=== PATIENT | female | born 1985 | race Caucasian/White ===

== ENCOUNTER 2020-01-15 16:24 | Day surgery (SDC) | payer OTHER ==
--- NOTE | 2020-01-15 16:57 | EDM.PDOC ---
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 She is not sure how far along she is. She was seen in [place] yesterday and the beta-hCG was 5330 some. She has been spotting per vagina for the last 2 days with mild lower abdominal cramping pain. She had bright red blood per vagina since waking this morning especially with wiping after voiding. About 2 and half hours ago she started to flow extremely heavily per vagina of bright red blood soaking all her clothing and passing large clots. She not sure if she seen any tissue in the blood that was passed. Associated moderate lower abdominal cramping pain. No nausea or vomiting no fever chills. She knows her blood type is O+. Her last meal was at noon today. She has had a couple of small snack cookies since that time. Onset: Today, Sudden Onset Date: 01/15/20 Onset Time: 14:45 Duration: Hour(s):, Constant Location: Reports: Other (Heavy bleeding per vaginaheavy bleeding per vagina) Quality: Reports: Other Severity: Severe Improves with: Reports: None Worsens with: Reports: None Context: Reports: Other (Spontaneous onset of heavy bleeding per vagina approximate 2 and half hours ago.). 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: 4 (All deliveries reached term and were delivered vaginally.) LMP (Approximate): Unknown (Believes about 2 months ) Social & Family History - Living Situation & Occupation Living situation: Reports: ED ROS GENERAL - Review of Systems Review Of Systems: See Below Constitutional: Denies: Fever, Chills, Malaise, Weakness, Fatigue, Decreased Appetite, Weight Loss HEENT: Reports: No Symptoms Respiratory: Reports: No Symptoms Cardiovascular: Reports: No Symptoms Endocrine: Reports: No Symptoms GI/Abdominal: Reports: Abdominal Pain (Use lower abdominal cramping pain), Other (Heavy vaginal flow per vagina for over 2 and half hours.). Denies: Decreased Appetite, Hematemesis, Hematochezia : Reports: Frequency Musculoskeletal: Reports: Back Pain (Diffuse low back pain) Skin: Reports: No Symptoms Neurological: Reports: No Symptoms Psychiatric: Reports: No Symptoms Hematologic/Lymphatic: Reports: No Symptoms Immunologic: Reports: No Symptoms ED EXAM - Physical Exam Exam: See Below Exam Limited By: No Limitations General Appearance: Alert, WD/WN, Anxious, Mild Distress, Other (Temperature is 37.2. Heart rate 83 and sinus respiratory 16 BP 04/03/1970 O2 sats 100% room air.) Eye Exam: Bilateral Eye: Normal Inspection (No blepharal pallor or scleral icterus.), PERRL Throat/Mouth: Normal Inspection, Normal Lips, Normal Oropharynx Head: Atraumatic, Normocephalic Neck: Normal Inspection, Supple, Non-Tender, Full Range of Motion. No: Lymphadenopathy (L), Lymphadenopathy (R) Respiratory/Chest: No Respiratory Distress, Lungs Clear, Normal Breath Sounds, No Accessory Muscle Use Cardiovascular: Normal Peripheral Pulses, Regular Rate, Rhythm, No Edema, No Gallop, No Murmur, No Rub GI/Abdominal Exam: Normal Bowel Sounds, No Distention, No Abnormal Bruit, No Mass, Pelvis Stable, Guarding, Tender (And is suprapubically.), Abnormal Bowel Sounds (Bowel sounds are few very few and far between.). No: Rigid, Rebound (Very mild guarding suprapubically) (Female) Exam: Vaginal Bleeding, Other (Vaginal bleeding with bright red blood and clots. Uterus is anteverted and approximately 8 to 10 weeks in size. Cervical os is open.). No: Products of Conception Heart Tones: Not Eagle Back Exam: Normal Inspection, Full Range of Motion, Paraspinal Tenderness. No: CVA Tenderness (L), CVA Tenderness (R) Extremities: Normal Range of Motion, Non-Tender, No Pedal Edema Neurological: Alert, Oriented, CN II-XII Intact, Normal Cognition Psychiatric: Anxious Skin Exam: Warm, Dry, Intact, Normal Color, No Rash Course - Vital Signs Last Recorded V/S: Last Vital Signs Temp 37.9 C 01/15/20 18:57 Pulse 83 01/15/20 16:48 Resp 16 01/15/20 16:48 BP 117/79 01/15/20 18:57 Pulse Ox 100 01/15/20 16:48 - Orders/Labs/Meds Orders: Active Orders 24 hr Category Date Time Status Patient Status [ADT] Routine ADT 01/15/20 18:44 Active OB Transvaginal [US] Stat Exams 01/15/20 16:53 Ordered PATIENT RETYPE [BBK] Routine Lab 01/15/20 18:28 Ordered Lactated Ringers [Ringers, Lactated] 1,000 ml Med 01/15/20 17:00 Active IV ASDIRECTED Remove Patch Med 01/18/20 19:15 Active 1 ea TRDERM Q72H Scopolamine [Transderm-Scop] Med 01/15/20 18:59 Active 1.5 mg TRDERM ONETIME PRN Schedule Procedure [COMM] Stat Oth 01/15/20 18:47 Ordered Medication Orders Lactated Ringer's (Ringers, Lactated) 1,000 mls @ 999 mls/hr IV ASDIRECTED [facility] Last Admin: 01/15/20 17:00 Dose: 999 mls/hr Documented by: MAURO Miscellaneous Information (Remove Patch) 1 ea TRDERM Q72H [facility] Scopolamine (Transderm-Scop) 1.5 mg TRDERM ONETIME PRN PRN Reason: PONV Labs: Laboratory Tests 01/15/20 01/15/20 01/15/20 Range/Units 16:35 16:35 16:35 WBC 9.87 (3.98-10.04) K/mm3 RBC 4.93 (3.98-5.22) M/mm3 Hgb 14.8 (11.2-15.7) gm/dl Hct 45.2 H (34.1-44.9) % MCV 91.7 (79.4-94.8) fl MCH 30.0 (25.6-32.2) pg MCHC 32.7 (32.2-35.5) g/dl RDW Std Deviation 42.0 (36.4-46.3) fL Plt Count 357 (182-369) K/mm3 MPV 10.3 (9.4-12.3) fl Neut % (Auto) 59.2 (34.0-71.1) % Lymph % (Auto) 33.3 (19.3-51.7) % Cuming % (Auto) 6.0 (4.7-12.5) % Eos % (Auto) 1.1 (0.7-5.8) Baso % (Auto) 0.3 (0.1-1.2) % Neut # (Auto) 5.84 (1.56-6.13) K/mm3 Lymph # (Auto) 3.29 (1.18-3.74) K/mm3 Cuming # (Auto) 0.59 H (0.24-0.36) K/mm3 Eos # (Auto) 0.11 (0.04-0.36) K/mm3 Baso # (Auto) 0.03 (0.01-0.08) K/mm3 PT 9.9 (9.7-12.0) SECONDS INR < 0.93 APTT 29.1 (21.7-31.4) SECONDS Sodium 141 (136-145) mEq/L Potassium 3.6 (3.5-5.1) mEq/L Chloride 102 (98-107) mEq/L Carbon Dioxide 27 (21-32) mEq/L Anion Gap 15.6 H (5-15) BUN 11 (7-18) mg/dL Creatinine 0.8 (0.55-1.02) mg/dL Est Cr Clr Drug Dosing TNP Estimated GFR (MDRD) > 60 (>60) mL/min BUN/Creatinine Ratio 13.8 L (14-18) Glucose 109 H (74-106) mg/dL Calcium 9.6 (8.5-10.1) mg/dL Total Bilirubin 0.3 (0.2-1.0) mg/dL AST 13 L (15-37) U/L ALT 20 (14-59) U/L Alkaline Phosphatase 90 (46-116) U/L Total Protein 8.0 (6.4-8.2) g/dl Albumin 4.4 (3.4-5.0) g/dl Globulin 3.6 gm/dL Albumin/Globulin Ratio 1.2 (1-2) HCG, Quant 3488.0 mIU/mL SARS-CoV-2 RNA (JUAREZ) (NEGATIVE) Blood Type Gel Antibody Screen 01/15/20 01/15/20 Range/Units 16:35 17:45 WBC (3.98-10.04) K/mm3 RBC (3.98-5.22) M/mm3 Hgb (11.2-15.7) gm/dl Hct (34.1-44.9) % MCV (79.4-94.8) fl MCH (25.6-32.2) pg MCHC (32.2-35.5) g/dl RDW Std Deviation (36.4-46.3) fL Plt Count (182-369) K/mm3 MPV (9.4-12.3) fl Neut % (Auto) (34.0-71.1) % Lymph % (Auto) (19.3-51.7) % Cuming % (Auto) (4.7-12.5) % Eos % (Auto) (0.7-5.8) Baso % (Auto) (0.1-1.2) % Neut # (Auto) (1.56-6.13) K/mm3 Lymph # (Auto) (1.18-3.74) K/mm3 Cuming # (Auto) (0.24-0.36) K/mm3 Eos # (Auto) (0.04-0.36) K/mm3 Baso # (Auto) (0.01-0.08) K/mm3 PT (9.7-12.0) SECONDS INR APTT (21.7-31.4) SECONDS Sodium (136-145) mEq/L Potassium (3.5-5.1) mEq/L Chloride (98-107) mEq/L Carbon Dioxide (21-32) mEq/L Anion Gap (5-15) BUN (7-18) mg/dL Creatinine (0.55-1.02) mg/dL Est Cr Clr Drug Dosing Estimated GFR (MDRD) (>60) mL/min BUN/Creatinine Ratio (14-18) Glucose (74-106) mg/dL Calcium (8.5-10.1) mg/dL Total Bilirubin (0.2-1.0) mg/dL AST (15-37) U/L ALT (14-59) U/L Alkaline Phosphatase (46-116) U/L Total Protein (6.4-8.2) g/dl Albumin (3.4-5.0) g/dl Globulin gm/dL Albumin/Globulin Ratio (1-2) HCG, Quant mIU/mL SARS-CoV-2 RNA (JUAREZ) Negative (NEGATIVE) Blood Type O POSITIVE Gel Antibody Screen Negative Meds: Medications Generic Name Dose Route Start Last Admin Trade Name Freq PRN Reason Stop Dose Admin Lactated Ringer's 1,000 mls @ 999 mls/hr 01/15/20 17:00 01/15/20 17:00 Ringers, Lactated IV 999 mls/hr ASDIRECTED [facility] Administration Miscellaneous Information 1 ea 01/18/20 19:15 Remove Patch TRDERM Q72H [facility] Scopolamine 1.5 mg 01/15/20 18:59 Transderm-Scop TRDERM ONETIME PRN PONV Discontinued Medications Generic Name Dose Route Start Last Admin Trade Name Freq PRN Reason Stop Dose Admin Dexamethasone Confirm 01/15/20 18:27 Dexamethasone Administered 01/15/20 18:28 Dose 20 mg .ROUTE .STK-MED ONE Fentanyl Confirm 01/15/20 18:28 Sublimaze Administered 01/15/20 18:29 Dose 100 mcg .ROUTE .STK-MED ONE Hydromorphone HCl Confirm 01/15/20 18:27 Dilaudid Administered 01/15/20 18:28 Dose 0.5 mg .ROUTE .STK-MED ONE Lidocaine HCl Confirm 01/15/20 18:27 Xylocaine-Mpf 1% Administered 01/15/20 18:28 Dose 4 mls @ as directed .ROUTE .STK-MED ONE Lactated Ringer's Confirm 01/15/20 18:27 Ringers, Lactated Administered 01/15/20 18:28 Dose 1,000 mls @ as directed .ROUTE .STK-MED ONE Lactated Ringer's Confirm 01/15/20 19:26 Ringers, Lactated Administered 01/15/20 19:27 Dose 1,000 mls @ as directed .ROUTE .STK-MED ONE Ketorolac Tromethamine Confirm 01/15/20 18:27 Toradol Administered 01/15/20 18:28 Dose 30 mg .ROUTE .STK-MED ONE Midazolam HCl Confirm 01/15/20 18:28 Versed 1 Mg/Ml Administered 01/15/20 18:29 Dose 2 mg .ROUTE .STK-MED ONE Ondansetron HCl Confirm 01/15/20 18:27 Zofran Administered 01/15/20 18:28 Dose 4 mg .ROUTE .STK-MED ONE Propofol Confirm 01/15/20 18:27 Diprivan 20 Ml Administered 01/15/20 18:28 Dose 200 mg .ROUTE .STK-MED ONE - Radiology Interpretation Free Text/Narrative:: 34-year-old female who is 5 para 4 presents to the ED with very heavy bleeding per vagina. Patient is unsure how she could be. She was weaning her last child from breast-feeding over the last 2 months. It appears that she likely had an ovulatory cycle and became with this. She was seen through the [facility] yesterday and a quantitative hCG was greater than 5300. She has been spotting per vagina for the last 2 days pinkish di scharge mostly with wiping yesterday with associated mild mid lower abdominal cramping pain. Today she had bright red bleeding per vagina since awakening particular every time she wiped. 2 and half hours ago the flow increased dramatically with soaking all of her clothing on 2 occasions with bright red blood and clot. At no time did she see any tissue components. Upon arrival vital signs are stable with heart rate of 83 BP 04/05/1975 sats 100%. Exam pelvic Jay Jay reveals the uterus to be 8 to 10 weeks in size anteverted cervix appears to be patulous and open. Large amount of clots appreciated in the posterior cul-de-sac. Plan a transvaginal ultrasound will be performed. Labs were drawn including a type and screen. I will ask for gynecological obstetrical opinion from Dr. Lau who is on-call at this time - Re-Assessments/Exams Free Text/Narrative Re-Assessment/Exam: 01/15/20 18:[address] Lau's on-call fermenter champagne to see her in consultation and he has done so. Ultrasound did not reveal any evidence of a viable fetus and it appears to be filled with blood and blood clot. Uterus is anteverted and measures 8.5 x 4.9 x 5.0 cm. The myometrium is homogeneous. Endometrial stripe is poorly defined. No anterior uterine gestational sac is identified. The right ovary measures 4.2 x 1.8 x 1.7 cm and is normal in appearance. Left ovary was not visualized with any degree of certainty. There is no free fluid in the pelvis. Decision made therefore to take her to the operating room for D&C. 01/15/20 18:18 White count is normal at 9.87. Differential shows 59% neutrophils by auto differential. Hemoglobin is 14.8 with hematocrit of 45.2. Platelet counts 3 and 57,000. PT is 9.9 with an INR of less than 0.93. PTT is 29.1. Sodium 141 with a potassium of 3.6. Chloride 102 with a bicarb of 27 and a gap is 15.6. BUN 11 with a creatinine of 0.8. GFR is greater than 60. Glucose 109. Calcium 9.6 liver function normal albumin fraction is 4.4 total protein 8.0 quantitative hCG is 3488.0 a dramatic drop from what she told me it was 2 days ago at 5383. The rapid Covid screen is pending. 01/15/20 19:00: Rapid Covid screen is negative. She will be discharged to the recovery room for D&C. Departure - Departure Time of Disposition: 19:00 Disposition: DC/Tfer to [facility] Access [facility] Condition: Fair Clinical Impression: Incomplete miscarriage with blood clot - Discharge Information *PRESCRIPTION DRUG MONITORING PROGRAM REVIEWED*: Not Applicable *COPY OF PRESCRIPTION DRUG MONITORING REPORT IN PATIENT [place]: Not Applicable Sepsis Event Note (ED) - Focused Exam Vital Signs: Vital Signs Temp Pulse Resp BP Pulse Ox 01/15/20 18:57 37.9 C 117/79 01/15/20 16:48 37.2 C 83 16 128/71 100 - My Orders Last 24 Hours: My Active Orders 01/15/20 16:53 OB Transvaginal [US] Stat 01/15/20 17:00 Lactated Ringers [Ringers, Lactated] 1,000 ml IV ASDIRECTED 01/15/20 18:28 PATIENT RETYPE [BBK] Routine - Assessment/Plan Last 24 Hours: My Active Orders 01/15/20 16:53 OB Transvaginal [US] Stat 01/15/20 17:00 Lactated Ringers [Ringers, Lactated] 1,000 ml IV ASDIRECTED 01/15/20 18:28 PATIENT RETYPE [BBK] Routine
[2020-01-15] MEDS ORDERED: Lactated Ringers 1,000 ML IV SCH (17:00)
--- NOTE | 2020-01-15 18:17 | PCM.PREANE ---
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), Dizziness (with anxiety), Headache (migraines), Numbness (left hand when sleeping) Other: Reports: Anxiety - Physical Assessment NPO Status Date: 01/15/20 NPO Status Time: 13:00 Vital Signs: Last Vital Signs Temp 37.2 C 01/15/20 16:48 Pulse 83 01/15/20 16:48 Resp 16 01/15/20 16:48 BP 128/71 01/15/20 16:48 Pulse Ox 100 01/15/20 16:48 Height: 1.7 m Weight: 70.307 kg ASA Class: 2E Mental Status: Alert & Oriented x3 Airway Class: Mallampati = 2 Dentition: Reports: Normal Dentition, Caries Thyro-Mental Finger Breadths: 3 Mouth Opening Finger Breadths: 3 ROM/Head Extension: Full Lungs: Clear to Auscultation, Normal Respiratory Effort Cardiovascular: Regular Rate, Regular Rhythm, No Murmurs - Lab Values: Laboratory Last Values WBC 9.87 K/mm3 (3.98-10.04) 01/15/20 16:35 RBC 4.93 M/mm3 (3.98-5.22) 01/15/20 16:35 Hgb 14.8 gm/dl (11.2-15.7) 01/15/20 16:35 Hct 45.2 % (34.1-44.9) H 01/15/20 16:35 MCV 91.7 fl (79.4-94.8) 01/15/20 16:35 MCH 30.0 pg (25.6-32.2) 01/15/20 16:35 MCHC 32.7 g/dl (32.2-35.5) 01/15/20 16:35 RDW Std Deviation 42.0 fL (36.4-46.3) 01/15/20 16:35 Plt Count 357 K/mm3 (182-369) 01/15/20 16:35 MPV 10.3 fl (9.4-12.3) 01/15/20 16:35 Neut % (Auto) 59.2 % (34.0-71.1) 01/15/20 16:35 Lymph % (Auto) 33.3 % (19.3-51.7) 01/15/20 16:35 Levy % (Auto) 6.0 % (4.7-12.5) 01/15/20 16:35 Eos % (Auto) 1.1 (0.7-5.8) 01/15/20 16:35 Baso % (Auto) 0.3 % (0.1-1.2) 01/15/20 16:35 Neut # (Auto) 5.84 K/mm3 (1.56-6.13) 01/15/20 16:35 Lymph # (Auto) 3.29 K/mm3 (1.18-3.74) 01/15/20 16:35 Levy # (Auto) 0.59 K/mm3 (0.24-0.36) H 01/15/20 16:35 Eos # (Auto) 0.11 K/mm3 (0.04-0.36) 01/15/20 16:35 Baso # (Auto) 0.03 K/mm3 (0.01-0.08) 01/15/20 16:35 PT 9.9 SECONDS (9.7-12.0) 01/15/20 16:35 INR < 0.93 01/15/20 16:35 APTT 29.1 SECONDS (21.7-31.4) 01/15/20 16:35 Sodium 141 mEq/L (136-145) 01/15/20 16:35 Potassium 3.6 mEq/L (3.5-5.1) 01/15/20 16:35 Chloride 102 mEq/L (98-107) 01/15/20 16:35 Carbon Dioxide 27 mEq/L (21-32) 01/15/20 16:35 Anion Gap 15.6 (5-15) H 01/15/20 16:35 BUN 11 mg/dL (7-18) 01/15/20 16:35 Creatinine 0.8 mg/dL (0.55-1.02) 01/15/20 16:35 Est Cr Clr Drug Dosing TNP 01/15/20 16:35 Estimated GFR (MDRD) > 60 mL/min (>60) 01/15/20 16:35 BUN/Creatinine Ratio 13.8 (14-18) L 01/15/20 16:35 Glucose 109 mg/dL (74-106) H 01/15/20 16:35 Calcium 9.6 mg/dL (8.5-10.1) 01/15/20 16:35 Total Bilirubin 0.3 mg/dL (0.2-1.0) 01/15/20 16:35 AST 13 U/L (15-37) L 01/15/20 16:35 ALT 20 U/L (14-59) 01/15/20 16:35 Alkaline Phosphatase 90 U/L (46-116) 01/15/20 16:35 Total Protein 8.0 g/dl (6.4-8.2) 01/15/20 16:35 Albumin 4.4 g/dl (3.4-5.0) 01/15/20 16:35 Globulin 3.6 gm/dL 01/15/20 16:35 Albumin/Globulin Ratio 1.2 (1-2) 01/15/20 16:35 HCG, Quant 3488.0 mIU/mL 01/15/20 16:35 Above labs reviewed and noted and within acceptable ranges to proceed with procedure. 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
--- NOTE | 2020-01-15 18:22 | PCM.LDHP ---
L&D History of Present Illness - General Date of Service: 01/15/20 Admit Problem/Dx: Admission Diagnosis/Problem Admission Diagnosis/Problem 01/15/20 18:14 Vaginal bleeding in early Source of Information: Patient History Limitations: Reports: No Limitations - History of Present Illness Introduction:: Nayla is a 34-year-old 5 para 4-0-0-4 white female who was evaluated in the ED on the evening of 01/15/2020 with bleeding in early . She reports onset of spotting 2 days ago with increase in intensity yesterday now wi th gushing and cramping starting earlier today. Patient is saturated several pads. She has passed clots. She has no symptoms. She reported a positive test at home 4 days ago. Her beta hCG at this time in the ED is 3488 milliunits/mL. Ultrasound shows what appears to be blood and fluid inside the uterine cavity. No identifiable is noted. The adnexal areas appear to have normal-appearing ovaries with small follicles within them. There is no free fluid in the adnexal areas. Consistent with an incomplete spontaneous miscarriage. 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 Patient has not had a period since her last as she has been nursing until just recently. She has a [id number] infant at home. Her children range in age from 10-8 to 5 to 15 months. All her females. All were born vaginally. She denies any STIs. She denies any symptoms at the present time. She has had 2 episodes of hemorrhage with her with 2 of her children. Neither 1 resulted in dilation and curettage or surgical intervention. She reports no abnormal Pap smears in the past. She usually receives her gynecologic health care from Dr. Albert Brink in [place] at [facility]. Allergies: Vancomycin which caused itching Medications: vitamins Past medical history: 1. Vaginal livery x4 2. Post hemorrhage x2 with medical management Past surgical history: 1. [place] tooth extraction Family history: Mother is alive at age 64 in good health. Father is alive at age 66 in good health. Patient has 3 sisters. One was stillborn, 1 with 2 spontaneous abortions and one with 2 ectopic pregnancies. There are no anesthe lana, bleeding, blood clotting or other problems noted in the family. Social history: Patient is . She lives in [place] with her and family. 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 She does not use any significant also alcohol, drugs or tobacco. Review of systems: Complains of intermittent cramping with gushes of blood vaginally. At this time.. Skin: Negative Lungs: No infectious symptoms or shortness of breath Cardiovascular: No chest pain or exercise intolerance Breasts: Negative GI: Negative : Negative Musculoskeletal: Negative Neurological: Negative In general the patient is well-developed, well-nourished, pleasant female of stated age in moderate distress secondary to bleeding and cramping.. Skin is warm dry without lesions. HEENT, neck and back within normal limits. Lungs are clear with good breath sounds in all lung dalton. Cardiovascular exam shows regular and rhythm without murmurs. Abdomen is flat, soft, tender prepubic area but without masses or organomegaly. Positive bowel sounds are noted. No inguinal lymphadenopathy or hernias are noted. No guarding, rebound tenderness or significant discomfort is noted in the lateral quadrants of her pelvis. Genital per bimanual shows blood on the perineum medial thighs and chux. Normal external genitalia, BUS, pubic hair pattern eyes. There is normal support, secretions and estrogenization vagina. Uterus is size, anterior, freely mobile, without parametrial induration or adnexal abnormalities. Extremities and neurological exam are grossly within normal limits. Imaging: Transvaginal ultrasound is performed and shows uterus which is enlarged approximately 8 to 9 weeks size. It is anterior, midline. No free fluid is noted. Echoes present within the endometrial cavity consistent with blood and/or fluid. No identifiable present. No cardiac activity, pole or gestational sacs noted. There is no evidence of ectopic however this cannot be entirely ruled out. Ovaries bilateral appear normal and functional in nature. Laboratory evaluation shows hemoglobin of 14.8 with hematocrit of 45.2. Platelets are 357,000. White count is 9.87. Her beta-hCG is 3488 milliunits/mL. Creatinine is 0.8. Her sodium is 141 with potassium at 3.6. Chloride is 102 and CO2 is 27. 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 History: Reports: Social & Family History - Tobacco Use Tobacco Use Status *Q: Never Tobacco User - Living Situation & Occupation Living situation: Reports: H&P Review of Systems - Review of Systems: Review Of Systems: See Below L&D Exam - Exam Exam: See Below - Vital Signs Vital Signs: Last Vital Signs Temp 37.2 C 01/15/20 16:48 Pulse 83 01/15/20 16:48 Resp 16 01/15/20 16:48 BP 128/71 01/15/20 16:48 Pulse Ox 100 01/15/20 16:48 - OB Specific Heart Tones: Not Lewis - Patient Data Lab Results Last 24 hrs: Laboratory Results - last 24 hr 01/15/20 01/15/20 01/15/20 Range/Units 16:35 16:35 16:35 WBC 9.87 (3.98-10.04) K/mm3 RBC 4.93 (3.98-5.22) M/mm3 Hgb 14.8 (11.2-15.7) gm/dl Hct 45.2 H (34.1-44.9) % MCV 91.7 (79.4-94.8) fl MCH 30.0 (25.6-32.2) pg MCHC 32.7 (32.2-35.5) g/dl RDW Std Deviation 42.0 (36.4-46.3) fL Plt Count 357 (182-369) K/mm3 MPV 10.3 (9.4-12.3) fl Neut % (Auto) 59.2 (34.0-71.1) % Lymph % (Auto) 33.3 (19.3-51.7) % Hettinger % (Auto) 6.0 (4.7-12.5) % Eos % (Auto) 1.1 (0.7-5.8) Baso % (Auto) 0.3 (0.1-1.2) % Neut # (Auto) 5.84 (1.56-6.13) K/mm3 Lymph # (Auto) 3.29 (1.18-3.74) K/mm3 Hettinger # (Auto) 0.59 H (0.24-0.36) K/mm3 Eos # (Auto) 0.11 (0.04-0.36) K/mm3 Baso # (Auto) 0.03 (0.01-0.08) K/mm3 PT 9.9 (9.7-12.0) SECONDS INR < 0.93 APTT 29.1 (21.7-31.4) SECONDS Sodium 141 (136-145) mEq/L Potassium 3.6 (3.5-5.1) mEq/L Chloride 102 (98-107) mEq/L Carbon Dioxide 27 (21-32) mEq/L Anion Gap 15.6 H (5-15) BUN 11 (7-18) mg/dL Creatinine 0.8 (0.55-1.02) mg/dL Est Cr Clr Drug Dosing TNP Estimated GFR (MDRD) > 60 (>60) mL/min BUN/Creatinine Ratio 13.8 L (14-18) Glucose 109 H (74-106) mg/dL Calcium 9.6 (8.5-10.1) mg/dL Total Bilirubin 0.3 (0.2-1.0) mg/dL AST 13 L (15-37) U/L ALT 20 (14-59) U/L Alkaline Phosphatase 90 (46-116) U/L Total Protein 8.0 (6.4-8.2) g/dl Albumin 4.4 (3.4-5.0) g/dl Globulin 3.6 gm/dL Albumin/Globulin Ratio 1.2 (1-2) HCG, Quant 3488.0 mIU/mL Result Diagrams: 01/15/20 16:35 01/15/20 16:35 Problem List Initiated/Reviewed/Updated: Yes Orders Last 24hrs: Active Orders 24 hr Category Date Time Status OB Transvaginal [US] Stat Exams 01/15/20 16:53 Ordered CORONAVIRUS COVID-19 JUAREZ [MOLEC] Stat Lab 01/15/20 17:45 Received TYPE AND SCREEN [BBK] Stat Lab 01/15/20 16:35 Received Lactated Ringers [Ringers, Lactated] 1,000 ml Med 01/15/20 17:00 Active IV ASDIRECTED Medication Orders Lactated Ringer's (Ringers, Lactated) 1,000 mls @ 999 mls/hr IV ASDIRECTED [facility] Misael Admin: 01/15/20 17:00 Dose: 999 mls/hr Documented by: MAURO Assessment/Plan Comment:: 1. Incomplete miscarriage with blood and fluid within the uterine cavity. No evidence of ectopic at this time per clinical history, exam or ultrasound. 2. Blood is all positive therefore patient is in no need of Rh immunoglobulin therapy. 3. Generally healthy female at low risk for anesthesia surgery 4. History of hemorrhage after 2 of her pregnancies/deliveries. Plan: 1. Dilation suction curettage under general anesthesia. Procedure, risk, benefits, alternatives of care and follow-up were discussed in detail with patient. She appears to understand, wishes to proceed and has signed a consent. 2. Ancef 2 g IV preop for infection prophylaxis 3. Routine postoperative care and possible discharge this evening.
[2020-01-15] MEDS ORDERED: HYDROmorphone 0.5 MG/0.5 ML Syringe ONE (18:27)
[2020-01-15] MEDS ORDERED: Ondansetron 4 MG/2 ML SDV ONE (18:27)
[2020-01-15] MEDS ORDERED: Lactated Ringers 1,000 ML ONE ×2 (18:27→19:26)
[2020-01-15] MEDS ORDERED: Succinylcholine/Sod PF 100 MG/5 ML SYRINGE IV ONE (18:27)
[2020-01-15] MEDS ORDERED: Dexamethasone 4 MG/ML 5 ML MDV ONE (18:27)
[2020-01-15] MEDS ORDERED: Lidocaine 1% 4 ML ONE (18:27)
[2020-01-15] MEDS ORDERED: Ketorolac 30 MG/ML SDV ONE (18:27)
[2020-01-15] MEDS ORDERED: Propofol 200 MG/20 ML SDV ONE (18:27)
[2020-01-15] MEDS ORDERED: fentaNYL 100 MCG/2 ML SDV ONE (18:28)
[2020-01-15] MEDS ORDERED: Midazolam 1 MG/ML 2 ML SDV ONE (18:28)
[2020-01-15] MEDS ORDERED: Scopolamine 1.5 MG Transdermal Patch TRDERM PRN (18:59)
[2020-01-15] MEDS ORDERED: Ibuprofen 600 MG Tab PO PRN (19:41)
--- NOTE | 2020-01-15 19:47 | PCM.OPNOTE ---
- General Post-Op/Procedure Note Date of Surgery/Procedure: 01/15/20 Operative Procedure(s): Dilation and suction curettage Findings: Cervix was dilated to approximately 2 cm, products of conception consistent with placental tissue were protruding from this external cervical os at the time of the onset of the procedure. Endometrial curettings were consistent with products of conception. Uterus sounded to approximately 10 cm. Pre Op Diagnosis: Incomplete spontaneous Post-Op Diagnosis: Same Anesthesia Technique: General ET Tube Primary Surgeon: Dwight Lau Anesthesia Provider: Idalmis Huffman Pathology: Endometrial curettings consistent with products of conception Fluid Replacement, Intraop: 700 EBL in mLs: 10 Complications: None Condition: Good Free Text/Narrative:: Surgery duration: 7 minutes The patient was taken to the operating room and placed in a supine position operating table. She received 2 g of Ancef preoperatively for infection prophylaxis. After adequate general endotracheal anesthesia patient was placed in a dorsal lithotomy position. A weighted speculum was placed in the vagina. Cervix is found to be dilated to approximately 2 centimeters. Grasped anteriorly with a long Allis clamp. Uterus was sounded to approximately 10 cm. It was found to be anterior and mid position. Tissues found to be protruding from the external cervical os. This was grasped and removed with a ring forceps. Significant tissue was removed from the endometrial cavity in the same fashion. A 9 mm suction curette was then introduced in routine fashion the endometrial cavity was evacuated. Moderate amount tissue was obtained. Findings consistent with products of conception. A medium size sharp curet was introduced in a very careful fashion the endometrial cavity was curetted. It was be clear of any further tissue. The suction curet was then reintroduced and small and blood was removed. No further tissue was removed. This point the D&C was discontinued. The long Allis clamp used to stabilize the anterior lip the cervix was removed. Blood was removed from the vagina with a stick sponge and the weighted speculum was removed from the vagina. The patient was awakened from general anesthesia. The patient was discharged from the operating room in good condition.
[2020-01-15] MEDS ORDERED: Ondansetron 4 MG/2 ML SDV IVPUSH PRN (19:51)
[2020-01-15] MEDS ORDERED: fentaNYL 100 MCG/2 ML SDV IVPUSH PRN (19:51)
[2020-01-15] MEDS ORDERED: diphenhydrAMINE 50 MG/ML SDV IVPUSH PRN (19:51)
[2020-01-15] MEDS ORDERED: ePHEDrine 50 MG/ML SDV IVPUSH PRN (19:51)
[2020-01-15] MEDS ORDERED: HYDROmorphone 0.5 MG/0.5 ML Syringe IVPUSH PRN (19:52)
--- NOTE | 2020-01-15 19:53 | PCM.POSTAN ---
POST ANESTHESIA ASSESSMENT - MENTAL STATUS Mental Status: Alert - VITAL SIGNS Vital Signs: Last Vital Signs Temp 37.3 C 01/15/20 19:42 Pulse 103 01/15/20 1942 Resp 17 01/15/20 19:42 BP 130/76 01/15/20 19:42 Pulse Ox 95 01/15/20 19:42 - RESPIRATORY Respiratory Status: Respiratory Rate WNL, Airway Patent, O2 Saturation Stable, Supplemental Oxygen - CARDIOVASCULAR CV Status: Pulse Rate WNL, Blood Pressure Stable - GASTROINTESTINAL GI Status: No Symptoms - POST OP HYDRATION Hydration Status: Adequate & Stable
--- NOTE | 2020-01-15 19:53 | PCM48HPAN ---
Post Anesthesia Note - EVALUATION WITHIN 48HRS OF ANESTHETIC Vital Signs in Normal Range: Yes Patient Participated in Evaluation: Yes Respiratory Function Stable: Yes Airway Patent: Yes Cardiovascular Function Stable: Yes Hydration Status Stable: Yes Pain Control Satisfactory: Yes Nausea and Vomiting Control Satisfactory: Yes Mental Status Recovered: Yes Vital Signs: Last Vital Signs Temp 37.3 C 01/15/20 19:42 Pulse 83 01/15/20 16:48 Resp 17 01/15/20 19:42 BP 130/76 01/15/20 19:42 Pulse Ox 95 01/15/20 19:42
--- NOTE | 2020-01-16 11:00 | US ---
PROCEDURE INFORMATION: Exam: US , Transvaginal Exam date and time: 01/15/2020 5:07 PM Age: 34 years old Clinical indication: Lmp or gestational age (in weeks): ? 8 weeks; Antepartum complications; Bleeding; TECHNIQUE: Imaging protocol: Real-time transvaginal obstetrical ultrasound of the maternal pelvis and a first trimester with image documentation. Transvaginal imaging was used for better evaluation of the fetus, adnexa, and/or cervix. COMPARISON: No relevant prior studies available. FINDINGS: Limitations: The patient was in pain and the quality of the imaging is suboptimal. Uterus: The uterus is anteverted and measures 8.5 x 4.9 x 5.0 cm. The myometrium is homogeneous. The endometrial stripe is poorly defined. No intrauterine gestational sac is identified. The technologist reported seen fluid movement within the endometrial canal. Right adnexa: The right ovary measures 4.2 x 1.8 x 1.7 cm and is normal in appearance. Left adnexa: The left ovary was not visualized. Intraperitoneal space: There is no free fluid in the pelvis. IMPRESSION: No intrauterine gestation is identified. The endometrial stripe is poorly defined and there appears to be fluid within the endometrial canal suggesting possible in progress. Careful ongoing clinical and/or sonographic follow-up will be needed. Thank you for allowing us to participate in the care of your patient. Dictated and Authenticated by: Madonna Flores MD 01/15/2020 7:16 PM Central Time ([place] & [place]) [facility]
== END 2020-01-15 21:14 | disposition home or self-care (01) ==
LOC: JD.ED 16:24 → JD.SDS 18:46
PROVIDERS: ATTEND Obstetrics & Gynecology
DX: O03.4 Incomplete spontaneous abortion without complication (principal); Z88.1 Allergy status to other antibiotic agents; Z88.2 Allergy status to sulfonamides; Z88.0 Allergy status to penicillin; Z01.812 Encounter for preprocedural laboratory examination; Z20.828 Contact with and (suspected) exposure to other viral communicable diseases
CPT/HCPCS: 36415; 59812; 76817; 80053; 84702; 85025; 85610; 85730; 86850; 86900; 86901; 87635; 99284; A9270; J0330; J1100; J1170; J1885; J2001; J2250; J2405; J2704; J3010; J7120; 01965; U0002